=== PATIENT | male | born 1935 | race Caucasian/White ===

== ENCOUNTER 2021-06-11 20:04 | Inpatient (IN) | payer MEDICARE, OTHER ==
[~2021-06-11] VITALS: Ht 165.1 cm; Wt 47.6 kg
[~2021-06-11 20:04] MED LIST: DONE5TAB34 PO; FLUT1DIS5 IH; MECL-159 PO; MELO-105 PO; METO-357 PO; OMEP20TA5 PO; PENT400T17 PO; VALS80TA31 PO
--- NOTE | 2021-06-11 20:35 | NUR ---
PATIENT BIBEMS FROM HOME C/O LEFT SIDED LOWER BACK PAIN YESTERDAY WHILE SLEEPING THAT RESOLVED. PATIENT STATED RIGHT LOWER ABD AND PELVIC PAIN X 2 DAYS. PATIENT IS A/O X 4, RR EVEN AND UNLABORED, NO SIGNS OF SOB NOTED. PATIENT CONNECTED TO MONITOR.
[2021-06-11 21:06] LABS: BASOPHILS % (AUTO) 0.4 % (0.0-2.0); EOSINOPHILS % (AUTO) 0.2 % (0.0-6.0); HEMATOCRIT 41 % (39-51); HEMOGLOBIN 13.4 g/dL (13.5-17.5); LYMPHOCYTES # (AUTO) 0.8 K/uL (0.8-4.8); MEAN CORPUSCULAR HGB CONC 33 g/dl (31.0-36.0); MEAN CORPUSCULAR VOLUME 92 fL (80-96); MONOCYTES # (AUTO) 0.9 K/uL (0.1-1.30); MONOCYTES % (AUTO) 9.2 % (2.0-12.0); NEUTROPHILS # (AUTO) 8.2 K/uL (1.8-8.9); NEUTROPHILS % (AUTO) 82.2 % (43.0-81.0); PLATELET COUNT (AUTO) 162 K/uL (150-450); RED BLOOD CELL COUNT(AUTO) 4.41 MIL/uL (4.5-6.0); WHITE BLOOD COUNT (AUTO) 9.9 K/uL (4.3-11.0)
[2021-06-11 21:20] LABS: CALCIUM, SERUM 8.1 mg/dL (8.5-10.1); CARBON DIOXIDE 24 mmol/L (21-32); CHLORIDE 104 mmol/L (98-107); CREATININE 2.8 mg/dL (0.6-1.3); GLUCOSE 167 mg/dL (74-106); POTASSIUM 4.3 mmol/L (3.5-5.1); SODIUM SERUM 138 mmol/L (136-145); UREA NITROGEN, BLOOD 35 mg/dL (7-18)
[2021-06-11 21:30] LABS: ALANINE AMINOTRANSFERASE 10 U/L (12-78); ALBUMIN 2.9 g/dL (3.4-5.0); ALKALINE PHOSPHATASE 66 U/L (46-116); ASPARTATE AMINOTRANSFERASE 19 U/L (15-37); BILIRUBIN,DIRECT 0.2 mg/dL (0.0-0.2); BILIRUBIN,TOTAL 0.6 mg/dL (0.2-1.0); LIPASE 101 U/L (73-393); TOTAL PROTEIN, SERUM 7.2 g/dL (6.4-8.2)
--- NOTE | 2021-06-11 22:05 | NUR ---
COVID SWAB COLLECTED AND SENT TO LAB
[2021-06-11] MEDS ORDERED: CEFTRIAXONE 1 G in IV D5W 50 ML IV ONE (22:30)
[2021-06-11] MEDS ORDERED: IV NS 0.9% 1,000 ML IV ONE (22:30)
[2021-06-11] MEDS ORDERED: KETOROLAC TROMETHAMINE INJ 30 MG/ML VIAL IV ONE (22:30)
[2021-06-11] MEDS ORDERED: FENTANYL PF 100MCG/2ML AMPUL IV ONE (22:30)
--- NOTE | 2021-06-11 22:30 | NUR ---
CALLED DR DAVID FOR CONSULT, LEFT VOICEMAIL
[2021-06-11] MEDS ORDERED: FENTANYL PF 100MCG/2ML AMPUL ONE (22:44)
[2021-06-11] MEDS ORDERED: KETOROLAC TROMETHAMINE 15 MG/ML VIAL ONE (22:44)
[2021-06-11] MEDS ORDERED: CEFTRIAXONE 1GM BAG (ER ONLY) 50 ML IV ONE (22:44)
--- NOTE | 2021-06-11 22:50 | NUR ---
CALLED DR DAVID, LEFT VOICEMAIL
--- NOTE | 2021-06-11 22:57 | NUR ---
DR DAVID SPEAKING WITH DR ZAMAN
--- NOTE | 2021-06-11 23:12 | NUR ---
CALLED [facility], SPOKE TO [place], FAXED FACESHEET AND CLINICALS FOR REVIEW, STATES WILL CALL BACK WITH CAPACITY STATUS
--- NOTE | 2021-06-11 23:26 | NUR ---
SPOKE TO VENKAT AT [facility], [facility].
--- NOTE | 2021-06-11 23:27 | NUR ---
URINE COLLECTED AND SENT TO LAB
--- NOTE | 2021-06-11 23:28 | NUR ---
PER [place] [facility] [place] CAPACITY FOR CASE
[2021-06-11 23:32] LABS: BILIRUBIN,URINE Negative (NEGATIVE); COLOR,URINE YELLOW (YELLOW); LEUKOCYTE ESTERASE ,URINE Negative (NEGATIVE); NITRITE, URINE Negative (NEGATIVE); PH,URINE 5.5 (5.0-8.0); PROTEIN,URINE 100 mg/dl (NEGATIVE); UGLUCOSE Negative (NEGATIVE); UROBILINOGEN,URINE 0.2 EU/dL (0.2)
[2021-06-11 23:52] LABS: BACTERIA,URINE Rare /HPF (None Seen); SQUAMOUS EPITHELIAL CELL,UR Few /HPF (None Seen); WBC,URINE NONE SEEN /HPF (0-3)
[2021-06-12] MEDS ORDERED: TAMSULOSIN 0.4 MG CAP.SR.24H PO SCH ×2 (05:30→22:00)
[2021-06-12] MEDS ORDERED: ONDANSETRON HCL/PF 4 MG/2 ML VIAL IVP PRN (05:30)
[2021-06-12] MEDS ORDERED: HYDROCODONE/APAP 5/325MG TABLET PO PRN (05:30)
[2021-06-12] MEDS ORDERED: ACETAMINOPHEN 325 MG TABLET PO PRN (05:30)
[2021-06-12] MEDS ORDERED: Z GUARD REMEDY 2 OZ OINT TP PRN (05:30)
--- NOTE | 2021-06-12 05:30 | NUR ---
PATIENT RESTING IN BED, A/O X 4. VSS. PATIENT IN NO ACUTE DISTRESS. WILL CONTINUE TO MONITOR.
[2021-06-12] MEDS ORDERED: TAMSULOSIN 0.4 MG CAP.SR.24H ONE (05:57)
[2021-06-12] MEDS ORDERED: ENOXAPARIN SODIUM 30 MG/0.3 ML DISP.SYRIN ONE (05:57)
[2021-06-12] MEDS: ENOXAPARIN SODIUM 30 MG/0.3 ML DISP.SYRIN SQ SCH (06:04)
[2021-06-12] MEDS: PANTOPRAZOLE 40 MG TABLET.DR PO SCH (07:30)
[2021-06-12] MEDS: ALBUTEROL FS 2.5 MG/3 ML VIAL.NEB NEB SCH ×3 (07:35→21:56)
--- NOTE | 2021-06-12 07:56 | NUR ---
THE PATIENT IS ALERT AND ORIENTED X3. DENIES PAIN. IN ROOM AIR AND DENIES SOB. RESPIRATION REGULAR AND UNLABORED. WILL CONTINUE TO MONITOR THE PATIENT.
[2021-06-12] MEDS: PENTOXIFYLLINE 400 MG TABLET.SA PO SCH ×3 (09:00→17:00)
[2021-06-12] MEDS: MELOXICAM 7.5 MG TABLET PO SCH (09:00)
[2021-06-12] MEDS: MECLIZINE HCL 25 MG TABLET PO SCH (09:00)
[2021-06-12] MEDS ORDERED: MECLIZINE HCL 25 MG TABLET ONE (09:00)
[2021-06-12] MEDS ORDERED: DONEPEZIL 5 MG TABLET ONE (09:01)
[2021-06-12] MEDS ORDERED: VALSARTAN 80 MG TABLET ONE (09:01)
[2021-06-12] MEDS ORDERED: PANTOPRAZOLE 40 MG TABLET.DR PO ONE (09:01)
[2021-06-12] MEDS: VALSARTAN 80 MG TABLET PO SCH (09:19)
[2021-06-12] MEDS: DONEPEZIL 5 MG TABLET PO SCH (09:19)
[2021-06-12] MEDS: METOPROLOL SUCCINATE 50 MG TAB.SR.24H PO SCH (09:20)
--- NOTE | 2021-06-12 09:38 | NUR ---
CALLED RT FOR BREATHING TREATMENT DUE
[2021-06-12] MEDS ORDERED: ALBUTEROL FS 2.5 MG/3 ML VIAL.NEB ONE ×2 (10:05→14:42)
[2021-06-12] MEDS: IV NS 0.9% 1,000 ML IV PRN (11:16)
--- NOTE | 2021-06-12 11:36 | NUR ---
DEB [phone], SON IN LAW
[2021-06-12] MEDS ORDERED: CEFTRIAXONE 1 G in IV D5W 50 ML IV ONE (18:30)
--- NOTE | 2021-06-12 19:30 | NUR ---
RECEIVED REPORT FOR CONNOR, PATIENT IN BED RESTING, VSS, PATIENT CONNECTED TO MONITOR, PATIENT IN NO ACUTE DISTRESS.
[2021-06-12] MEDS ORDERED: PIPERACILLIN /TAZOBACTAM 3.375 G in IV D5W 50 ML IV SCH (20:00)
--- NOTE | 2021-06-12 20:45 | NUR ---
Ivan brenner in [facility] - 06/12/21 at 2112 by STEPHANE [id number]
--- NOTE | 2021-06-12 21:34 | NUR ---
REPORT GIVEN JASMINA PETERSON
[2021-06-12] MEDS: BUDESONIDE RESPULE INH 0.5 MG/2 ML AMPUL.NEB NEB SCH (21:55)
[2021-06-12 22:00] VITALS: BP 164/83
[2021-06-12] MEDS ORDERED: TERAZOSIN HCL 5 MG CAPSULE PO SCH (22:00)
[2021-06-12] MEDS ORDERED: CEFTRIAXONE 1 G in IV D5W 50 ML IV SCH (22:00)
--- NOTE | 2021-06-12 22:05 | NUR ---
PATIENT TRANSFERRED TO [facility] ROOM 312-1, PATIENT STABLE.
--- NOTE | 2021-06-12 22:30 | NUR ---
AFTERNOON NANNYMANAGER TECHNICAL NOTES: PATIENT CAME FROM ER VIA GURNEY AT 2200, AMBULATORY WITH SUPERVISION, A/O X4, NO COMPLAIN OF PAIN AND DISCOMFORT, ON TELE MONITORING WITH READING OF SR-71, PATIENT IS CITIZEN OF [place] SPEAKING, CALLED SON IN LAW [place] FOR ADDITIONAL INFORMATION DURING ASSESSMENT, WITH IV LINE AT R WRIST #20 INFUSING WELL, SKIN ASSESSMENT DONE WITH NO SKIN ISSUES OBSERVED, BED IN LOW POSITION, CALL LIGHTS WITHIN REACH, REORIENT TO PLACE, ADVISE TO USE THE CALL LIGHTS WHEN NEEDED ASSISTANCE, NPO POST MIDNIGHT PATIENT VERBALIZED UNDERSTANDING, KEPT CLEAN AND DRY ,WILL CONTINUE TO MONITOR.
[2021-06-12 23:55] VITALS: BP 164/83
[2021-06-13] VITALS: BP 139/75
[2021-06-13 00:38] VITALS: BP 139/75
[2021-06-13] MEDS: ALBUTEROL FS 2.5 MG/3 ML VIAL.NEB NEB SCH ×3 (01:30→14:29)
[2021-06-13] MEDS: ZOSYN IVPB 2.25 G in IV D5W 50ml IV SCH ×4 (02:28→13:27)
[2021-06-13 04:00] VITALS: BP 138/73
[2021-06-13] MEDS: ENOXAPARIN SODIUM 30 MG/0.3 ML DISP.SYRIN SQ SCH (05:30)
--- NOTE | 2021-06-13 06:55 | NUR ---
RN NOTES: LOVENOX NOT GIVEN PATIENT POSSIBLE UNDERGOING PROCEDURE TODAY. FRO CYSTOSCOPY AND STENT PLACEMENT.
[2021-06-13 06:57] LABS: BASOPHILS % (AUTO) 0.3 % (0.0-2.0); EOSINOPHILS % (AUTO) 0.8 % (0.0-6.0); HEMATOCRIT 38 % (39-51); HEMOGLOBIN 12.6 g/dL (13.5-17.5); LYMPHOCYTES # (AUTO) 0.9 K/uL (0.8-4.8); LYMPHOCYTES % (AUTO) 11.3 % (20.0-44.0); MEAN CORPUSCULAR HGB CONC 33 g/dl (31.0-36.0); MEAN CORPUSCULAR VOLUME 93 fL (80-96); MONOCYTES # (AUTO) 0.7 K/uL (0.1-1.30); MONOCYTES % (AUTO) 8.5 % (2.0-12.0); NEUTROPHILS # (AUTO) 6.2 K/uL (1.8-8.9); NEUTROPHILS % (AUTO) 79.1 % (43.0-81.0); PLATELET COUNT (AUTO) 145 K/uL (150-450); RED BLOOD CELL COUNT(AUTO) 4.14 MIL/uL (4.5-6.0); WHITE BLOOD COUNT (AUTO) 7.8 K/uL (4.3-11.0)
[2021-06-13 07:05] LABS: ALANINE AMINOTRANSFERASE 7 U/L (12-78); ALBUMIN 2.4 g/dL (3.4-5.0); ALKALINE PHOSPHATASE 56 U/L (46-116); ASPARTATE AMINOTRANSFERASE 16 U/L (15-37); BILIRUBIN,TOTAL 0.5 mg/dL (0.2-1.0); CALCIUM, SERUM 7.9 mg/dL (8.5-10.1); CARBON DIOXIDE 23 mmol/L (21-32); CHLORIDE 108 mmol/L (98-107); CREATININE 2.3 mg/dL (0.6-1.3); GLUCOSE 98 mg/dL (74-106); MAGNESIUM 1.7 mg/dL (1.8-2.4); POTASSIUM 4.4 mmol/L (3.5-5.1); SODIUM SERUM 140 mmol/L (136-145); TOTAL PROTEIN, SERUM 6.4 g/dL (6.4-8.2); UREA NITROGEN, BLOOD 33 mg/dL (7-18)
[2021-06-13] MEDS: BUDESONIDE RESPULE INH 0.5 MG/2 ML AMPUL.NEB NEB SCH (07:05)
--- NOTE | 2021-06-13 07:07 | NUR ---
TEL RN CLOSING NOTES: PATIENT SLEEP IN BED COMFORTABLY, BED IN LOW POSITION, CALL LIGHTS WITHIN REAH, NO COM[PLAIN OF PAIN AND DISCOMFORT AT THIS TIME, PATIENT MARKY/O X4 YI SPEAKING , AMBULATORY, PATIENT IS NPO DUE TO SURGERY IN THE MORNING, ON TELE MONITORING WITH READING OF SR-73 CYSTOSCOPY WITH STENT PLACEMENT, PATIENT KEPT CLEAN AND DRY ALL NEEDS MET, SPOKE TO DEB SON IN LAW AND REFER TO JUANALICJA AND MIKEY SON TO SECURE SOME CONSENT FAMILY WANTS TO TALK TO THE DR BEFORE THE PROCEDURE ENDORSE TO INCOMING SHIFT.
[2021-06-13 07:10] LABS: CHOLESTEROL 143 mg/dL (<200); HDL CHOLESTEROL 45 mg/dL (40-60); LDL 86 mg/dL (0-99); TRIGLYCERIDES 97 mg/dL (30-150)
[2021-06-13] MEDS: PANTOPRAZOLE 40 MG TABLET.DR PO SCH (07:30)
--- NOTE | 2021-06-13 07:32 | NUR ---
SENIOR PLANNING ANALYST OPENING NOTES RECEIVED PT AWAKE IN BED IN NO ACUTE SIGNS OF DISTRESS. A/O X4. SYRIAC SPEAKING, DENIES PAIN OR ANY DISCOMFORTS AT THIS TIME. PT IS NPO FOR SURGERY THIS MORNING ONCE PT SIGN CONSENT. ON ROOM AIR, BREATHING EVEN AND UNLABORED. ON EXTERNAL BUNDLE PERSON WITH CURRENT READING OF NSR WITH HR ON THE 70'S, NO C/O OF CARDIAC DISTRESS VOICED AT THIS TIME. IV ACCESS ON LEFT WRIST G#22 INTACT AND PATENT WITH IVF OF NS @ 75 ML/HR INFUSING WELL. SAFETY MEASURES IN PLACE: BED IN LOWEST LOCKED POSITION WITH SR-UP X2. CALL LIGHT W/IN REACH. WILL CONTINUE TO MONITOR PT. .
[2021-06-13] MEDS ORDERED: ANESTHESIA TRAY IN PYXIS 1 EA TRAY MC ONE (07:55)
[2021-06-13 08:00] VITALS: BP 166/96
--- NOTE | 2021-06-13 08:04 | NUR ---
RN NOTES PATIENT PICKED-UP FOR SURGERY. EMPLANED TO O.R. NURSE THAT FAMILY/PATIENT DIDN'T SIGN CONSENT YET BECAUSE THEY WANT TO SPEAK FIRST TO DR KINSEY BEFORE SURGERY.
[2021-06-13] MEDS ORDERED: ROCURONIUM BROMIDE 50 MG/5 ML ONE (08:28)
[2021-06-13] MEDS ORDERED: FENTANYL PF 100MCG/2ML AMPUL ONE (08:28)
[2021-06-13] MEDS ORDERED: PROPOFOL 0 ML IV ONE (08:28)
--- NOTE | 2021-06-13 09:17 | NUR ---
RN NOTES PATIENT RETURNED TO UNIT. PER O.R. JASMINA BELLO, DR KINSEY CALLED AND EMPLANED PROCEDURE BUT FAMILY/PT REFUSED SURGERY. MANUEL NEGRON MADE AWARE WITH ORDER TO PUT PT ON CARDIAC DIET.
[2021-06-13] MEDS: PENTOXIFYLLINE 400 MG TABLET.SA PO SCH ×2 (09:19→12:22)
[2021-06-13] MEDS: MECLIZINE HCL 25 MG TABLET PO SCH (09:19)
[2021-06-13] MEDS: MELOXICAM 7.5 MG TABLET PO SCH (09:19)
[2021-06-13] MEDS: DONEPEZIL 5 MG TABLET PO SCH (09:20)
[2021-06-13] MEDS: METOPROLOL SUCCINATE 50 MG TAB.SR.24H PO SCH (09:20)
[2021-06-13] MEDS: VALSARTAN 80 MG TABLET PO SCH (09:22)
[2021-06-13 10:00] VITALS: BP 135/92
[2021-06-13] MEDS ORDERED: Magnesium 1GM/D5W 100ML PREMIX 100 ML IV SCH (10:30)
[2021-06-13 12:00] VITALS: BP 135/68
[2021-06-13] MEDS ORDERED: HYDR-3972 PO (12:04)
[2021-06-13] MEDS ORDERED: TAMS-12 PO (12:04)
[2021-06-13] MEDS ORDERED: CIPR-262 PO (12:04)
--- NOTE | 2021-06-13 15:51 | NUR ---
RN DISCHARGED NOTES PT DISCHARGED HOME IN STABLE CONDITION. A/O X4. ABLE TO MAKE NEEDS KNOWN. AMBULATORY WITH STEADY GAIT. V/S TAKEN, STABLE AND RECORDED. NO SKIN ISSUES NOTED. ALL BELONGINGS ACCOUNTED FOR AND SIGNED FORM. IV ACCESS ON ON LEFT WRIST #22 REMOVED WITH NO ACTIVE BLEEDING NOTED, DRY PRESSURE DRESSING APPLIED TO SITE. HEALTH TEACHING/DISCHARGE INSTRUCTIONS GIVEN TO PT TRANSLATED BY PT'S GRANDDAUGHTER JULES IN [place], PT VERBALIZED UNDERSTANDING. EXIT FOLDER AND PRESCRIPTION FOR NORCO 5/325MG TAB HANDED TO PT'S GRANDDAUGHTER JULES. PT LEFT UNIT AMBULATORY AT 1545 ACCOMPANIED BY HER GRANDDAUGHTER. CHARGE NURSE AWARE OF DISCHARGE.
== END 2021-06-13 16:00 | disposition home or self-care (01) | DRG 694 ==
LOC: ER 20:08 → TRANSITION 06-12 06:28 → TELE 06-12 21:30 → MED 06-13 08:41
PROVIDERS: ADMIT Registered Nurse; ATTEND Registered Nurse
DX: N13.2 Hydronephrosis with renal and ureteral calculous obstruction (principal); N13.8 Other obstructive and reflux uropathy; N17.9 Acute kidney failure, unspecified; N40.0 Benign prostatic hyperplasia without lower urinary tract symptoms; I10 Essential (primary) hypertension; Z20.822 Contact with and (suspected) exposure to COVID-19; Z79.51 Long term (current) use of inhaled steroids; Z79.899 Other long term (current) drug therapy; N40.1 Benign prostatic hyperplasia with lower urinary tract symptoms; K21.9 Gastro-esophageal reflux disease without esophagitis; F17.200 Nicotine dependence, unspecified, uncomplicated; K40.90 Unilateral inguinal hernia, without obstruction or gangrene, not specified as recurrent; N32.3 Diverticulum of bladder
CPT/HCPCS: 36415; 71045-TC; 80048-TC; 80053-TC; 80061-TC; 80076-TC; 81001; 83690-TC; 83735-TC; 84100-TC; 85025-TC; 85610-TC; 85730-TC; 87081-TC; 94762-TC; 94799-TC; C9803; G0378; J0696; J1650; J1885; J2543; J2704; J3010; J3475; J7030; J7060; J8597

== ENCOUNTER 2022-05-19 20:15 | Inpatient (IN) | payer MEDICARE, OTHER ==
[~2022-05-19] VITALS: Ht 165.1 cm; Wt 44.0 kg
[~2022-05-19 20:15] MED LIST changes: +CIPR-262 PO; +HYDR-3972 PO; +TAMS-12 PO
[2022-05-19 21:09] LABS: BASOPHILS % (AUTO) 0.3 % (0.0-2.0); HEMATOCRIT 46 % (39-51); HEMOGLOBIN 15.4 g/dL (13.5-17.5); LYMPHOCYTES # (AUTO) 0.5 K/uL (0.8-4.8); LYMPHOCYTES % (AUTO) 5.9 % (20.0-44.0); MEAN CORPUSCULAR HGB CONC 33 g/dl (31.0-36.0); MEAN CORPUSCULAR VOLUME 91 fL (80-96); MONOCYTES # (AUTO) 0.6 K/uL (0.1-1.30); MONOCYTES % (AUTO) 6.6 % (2.0-12.0); NEUTROPHILS # (AUTO) 7.5 K/uL (1.8-8.9); NEUTROPHILS % (AUTO) 87.2 % (43.0-81.0); PLATELET COUNT (AUTO) 162 K/uL (150-450); RED BLOOD CELL COUNT(AUTO) 5.08 MIL/uL (4.5-6.0); WHITE BLOOD COUNT (AUTO) 8.6 K/uL (4.3-11.0)
[2022-05-19 21:54] LABS: CALCIUM, SERUM 8.9 mg/dL (8.5-10.1); CREATININE 1.6 mg/dL (0.6-1.3); GLUCOSE 145 mg/dL (74-106); UREA NITROGEN, BLOOD 34 mg/dL (7-18)
[2022-05-19 23:10] LABS: CHLORIDE 101 mmol/L (98-107); POTASSIUM 4.4 mmol/L (3.5-5.1); SODIUM SERUM 136 mmol/L (136-145)
[2022-05-19 23:15] LABS: CARBON DIOXIDE 25 mmol/L (21-32)
[2022-05-20] MEDS ORDERED: IPRATROPIUM NEB FS 0.5 MG/2.5 ML AMPUL.NEB NEB PRN
[2022-05-20] MEDS ORDERED: ACETAMINOPHEN 325 MG TABLET PO PRN
[2022-05-20] MEDS ORDERED: ONDANSETRON HCL/PF 4 MG/2 ML VIAL IVP PRN
[2022-05-20] MEDS ORDERED: ENOXAPARIN SODIUM 40 MG/0.4 ML DISP.SYRIN SQ SCH (03:08)
[2022-05-20 04:00] VITALS: BP 131/73
[2022-05-20 07:15] LABS: CHOLESTEROL 151 mg/dL (<200); HDL CHOLESTEROL 60 mg/dL (40-60); LDL 78 mg/dL (0-99); TRIGLYCERIDES 83 mg/dL (30-150)
[2022-05-20] MEDS ORDERED: AMLO-212 PO (07:19)
[2022-05-20] MEDS ORDERED: CARV12.52 PO (07:19)
[2022-05-20] MEDS ORDERED: ASPI-1420 PO (07:19)
[2022-05-20] MEDS ORDERED: BUDE10.2 INH (07:19)
[2022-05-20] MEDS ORDERED: LINA145C PO (07:19)
[2022-05-20] MEDS ORDERED: DOCU-141 PO (07:19)
[2022-05-20 07:29] LABS: BASOPHILS % (AUTO) 0.3 % (0.0-2.0); EOSINOPHILS % (AUTO) 0.1 % (0.0-6.0); HEMATOCRIT 47 % (39-51); HEMOGLOBIN 15.1 g/dL (13.5-17.5); LYMPHOCYTES # (AUTO) 0.8 K/uL (0.8-4.8); LYMPHOCYTES % (AUTO) 12.3 % (20.0-44.0); MEAN CORPUSCULAR HGB CONC 33 g/dl (31.0-36.0); MEAN CORPUSCULAR VOLUME 92 fL (80-96); MONOCYTES # (AUTO) 0.6 K/uL (0.1-1.30); MONOCYTES % (AUTO) 9.2 % (2.0-12.0); NEUTROPHILS # (AUTO) 5.1 K/uL (1.8-8.9); NEUTROPHILS % (AUTO) 78.1 % (43.0-81.0); PLATELET COUNT (AUTO) 154 K/uL (150-450); RED BLOOD CELL COUNT(AUTO) 5.07 MIL/uL (4.5-6.0); WHITE BLOOD COUNT (AUTO) 6.5 K/uL (4.3-11.0)
[2022-05-20 07:38] LABS: CALCIUM, SERUM 9.2 mg/dL (8.5-10.1); CARBON DIOXIDE 25 mmol/L (21-32); CHLORIDE 102 mmol/L (98-107); CREATININE 1.6 mg/dL (0.6-1.3); GLUCOSE 107 mg/dL (74-106); MAGNESIUM 2.2 mg/dL (1.8-2.4); PHOSPHORUS 3.2 mg/dL (2.5-4.9); POTASSIUM 4.4 mmol/L (3.5-5.1); SODIUM SERUM 137 mmol/L (136-145); UREA NITROGEN, BLOOD 36 mg/dL (7-18)
[2022-05-20 08:00] VITALS: BP 150/75
[2022-05-20] MEDS ORDERED: methylPREDNISolone SOD SUCC 125 MG/2ML VIAL IV SCH (10:30)
[2022-05-20] MEDS ORDERED: LEVOFLOXACIN (250MG) 250 MG TABLET PO ONE (11:00)
[2022-05-20 11:16] LABS: ABG BASE EXCESS -0.1 mmol/L; ABG PCO2 39.6 mmHg (35.0-45.0); ABG PH 7.408 (7.350-7.450); ABG PO2 56.5 mmHg (75.0-100.0); COHb 0.5 % (0.5-1.5); MetHb 0.3 % (0.0-1.5); O2Hb 89.6 % (94.0-97.0); SITE, ABG Right Brachial; VENT MODE, BG 2LPM NC
[2022-05-20] MEDS: ALBUTEROL HALF STRENGTH 1.25 MG/3 ML VIAL.NEB NEB SCH ×4 (11:48→23:25)
[2022-05-20] MEDS: IPRATROPIUM NEB FS 0.5 MG/2.5 ML AMPUL.NEB NEB SCH ×4 (11:48→23:25)
[2022-05-20 12:00] VITALS: BP 145/75
[2022-05-20] MEDS: methylPREDNISolone SOD SUCC 125 MG/2ML VIAL IV SCH ×2 (15:00→21:45)
[2022-05-20 16:00] VITALS: BP 110/55
[2022-05-20 20:00] VITALS: BP 141/76
[2022-05-20] MEDS ORDERED: ENOXAPARIN SODIUM 30 MG/0.3 ML DISP.SYRIN SQ SCH (22:00)
[2022-05-21] VITALS: BP 151/47
[2022-05-21] MEDS: ALBUTEROL HALF STRENGTH 1.25 MG/3 ML VIAL.NEB NEB SCH ×6 (03:17→23:07)
[2022-05-21] MEDS: IPRATROPIUM NEB FS 0.5 MG/2.5 ML AMPUL.NEB NEB SCH ×6 (03:17→23:07)
[2022-05-21 04:00] VITALS: BP 134/48
[2022-05-21] MEDS: methylPREDNISolone SOD SUCC 125 MG/2ML VIAL IV SCH ×3 (05:16→21:11)
[2022-05-21 08:00] VITALS: BP 140/83
[2022-05-21] MEDS ORDERED: ENOXAPARIN SODIUM 40 MG/0.4 ML DISP.SYRIN SQ SCH (09:00)
[2022-05-21] MEDS ORDERED: BARIUM SULFATE SUSP 450 ML BOTTLE PO ONE (09:20)
[2022-05-21] MEDS: LEVOFLOXACIN (250MG) 250 MG TABLET PO SCH (10:55)
[2022-05-21 11:32] LABS: BASOPHILS % (AUTO) 0.1 % (0.0-2.0); EOSINOPHILS % (AUTO) 0.1 % (0.0-6.0); HEMATOCRIT 44 % (39-51); HEMOGLOBIN 14.4 g/dL (13.5-17.5); LYMPHOCYTES # (AUTO) 0.5 K/uL (0.8-4.8); LYMPHOCYTES % (AUTO) 5.6 % (20.0-44.0); MEAN CORPUSCULAR HGB CONC 33 g/dl (31.0-36.0); MEAN CORPUSCULAR VOLUME 91 fL (80-96); MONOCYTES # (AUTO) 0.5 K/uL (0.1-1.30); MONOCYTES % (AUTO) 5.4 % (2.0-12.0); NEUTROPHILS # (AUTO) 8.3 K/uL (1.8-8.9); NEUTROPHILS % (AUTO) 88.8 % (43.0-81.0); PLATELET COUNT (AUTO) 193 K/uL (150-450); RED BLOOD CELL COUNT(AUTO) 4.88 MIL/uL (4.5-6.0); WHITE BLOOD COUNT (AUTO) 9.3 K/uL (4.3-11.0)
[2022-05-21 12:00] VITALS: BP 148/83
[2022-05-21 12:50] LABS: ALANINE AMINOTRANSFERASE 13 U/L (12-78); ALBUMIN 2.7 g/dL (3.4-5.0); ALKALINE PHOSPHATASE 63 U/L (46-116); ASPARTATE AMINOTRANSFERASE 17 U/L (15-37); BILIRUBIN,TOTAL 0.1 mg/dL (0.2-1.0); CALCIUM, SERUM 9.2 mg/dL (8.5-10.1); CARBON DIOXIDE 24 mmol/L (21-32); CHLORIDE 99 mmol/L (98-107); CREATININE 1.7 mg/dL (0.6-1.3); GLUCOSE 245 mg/dL (74-106); MAGNESIUM 2.1 mg/dL (1.8-2.4); PHOSPHORUS 3.1 mg/dL (2.5-4.9); POTASSIUM 4.4 mmol/L (3.5-5.1); SODIUM SERUM 134 mmol/L (136-145); TOTAL PROTEIN, SERUM 7.9 g/dL (6.4-8.2); UREA NITROGEN, BLOOD 47 mg/dL (7-18)
[2022-05-21] MEDS: APIXABAN 5 MG TABLET PO SCH ×2 (13:30→16:52)
[2022-05-21 16:00] VITALS: BP 130/75
[2022-05-21 20:00] VITALS: BP 145/77
[2022-05-22] VITALS: BP 148/82
[2022-05-22] MEDS: IPRATROPIUM NEB FS 0.5 MG/2.5 ML AMPUL.NEB NEB SCH ×3 (03:22→11:31)
[2022-05-22] MEDS: ALBUTEROL HALF STRENGTH 1.25 MG/3 ML VIAL.NEB NEB SCH ×3 (03:22→11:31)
[2022-05-22 04:00] VITALS: BP 128/71
[2022-05-22] MEDS: methylPREDNISolone SOD SUCC 125 MG/2ML VIAL IV SCH ×2 (04:18→12:38)
[2022-05-22 08:00] VITALS: BP 148/78
[2022-05-22] MEDS: APIXABAN 5 MG TABLET PO SCH (08:59)
[2022-05-22] MEDS: LEVOFLOXACIN (250MG) 250 MG TABLET PO SCH (11:04)
[2022-05-22 12:00] VITALS: BP 143/74
== END 2022-05-22 15:00 | disposition home or self-care (01) | DRG 189 ==
LOC: ER 20:23 → TELE1 05-20 02:55 → MEDSG1 05-22 09:26
PROVIDERS: ADMIT Nurse Practitioner Acute Care
DX: J96.01 Acute respiratory failure with hypoxia (principal); N17.0 Acute kidney failure with tubular necrosis; J44.1 Chronic obstructive pulmonary disease with (acute) exacerbation; I13.0 Hypertensive heart and chronic kidney disease with heart failure and stage 1 through stage 4 chronic kidney disease, or unspecified chronic kidney disease; N20.2 Calculus of kidney with calculus of ureter; I82.413 Acute embolism and thrombosis of femoral vein, bilateral; N13.1 Hydronephrosis with ureteral stricture, not elsewhere classified; I50.9 Heart failure, unspecified; N18.9 Chronic kidney disease, unspecified; Z20.822 Contact with and (suspected) exposure to COVID-19; K21.9 Gastro-esophageal reflux disease without esophagitis; Z79.899 Other long term (current) drug therapy; N28.1 Cyst of kidney, acquired; N20.0 Calculus of kidney; N40.0 Benign prostatic hyperplasia without lower urinary tract symptoms; F17.200 Nicotine dependence, unspecified, uncomplicated; R13.10 Dysphagia, unspecified
CPT/HCPCS: 36415; 36600; 71045-TC; 74230-TC; 76770-TC; 80048-TC; 80053-TC; 80061-TC; 82803-TC; 83735-TC; 83880; 84100-TC; 84484-TC; 85025-TC; 87081-TC; 92526; 92611-TC; 93307-TC; 93970-TC; 94799-TC; 97116-TC; 97530-TC; C9803; G0378; J1650; J2930